=== PATIENT | female | born 1945 | race African-American/Black ===

== ENCOUNTER 2025-01-10 08:39 | Outpatient (RCR) | payer MEDICARE, OTHER | END 2025-01-30 | LOC: RESP 08:39 | PROVIDERS: ATTEND Internal Medicine Pulmonary Disease | DX: J18.9 Pneumonia, unspecified organism (principal) | CPT/HCPCS: 94799 ==

== ENCOUNTER 2025-01-31 14:58 | Outpatient (RCR) | payer MEDICARE, OTHER | END 2025-03-01 | LOC: RESP 14:58 | PROVIDERS: ATTEND Internal Medicine Pulmonary Disease | DX: J18.9 Pneumonia, unspecified organism (principal) | CPT/HCPCS: 94626; G0238 ==